=== PATIENT | female | born 1945 | race Caucasian/White ===

== ENCOUNTER 2020-02-14 10:34 | Day surgery (SDC) | payer MEDICARE, SELFPAY ==
[2020-02-14] VITALS (9 sets, daily range): BP systolic 130–163; BP diastolic 54–74; PULSE 59–82; RESP 10–19; TEMP 36.2–36.8; O2SAT 93–100; BMI 31.6
--- NOTE | 2020-02-14 | DI.RAD.S_ITS ---
PROCEDURE: XR LUMBAR SPINE 2-3V INDICATIONS: L2 KYPHO TECHNIQUE: 2 views of the lumbar spine were acquired. COMPARISON: [facility], CR, XR LUMBAR SPINE 2 OR 3 VIEWS, 02/06/2020, 19:54. FINDINGS: 2 fluoroscopy views of the lumbar spine demonstrate L2 kyphoplasty. IMPRESSION: L2 kyphoplasty. Dictated by: Cedrick Lopez M.D. on 02/14/2020 at 14:58 Approved by: Cedrick Lopez M.D. on 02/14/2020 at 15:01
--- NOTE | 2020-02-14 | PATH_ITS ---
[facility] Accession Number: [id number] . 01 Material submitted: . back - L2 BIOPSY . 02 Diagnosis: Bone, L2, Biopsy: Fragments of woven and lamellar bone. Bone marrow with trilineage hematopoiesis. No evidence of neoplasm. [facility] 02/15/2020 1323 Local . 02 Electronically signed: . Meseret Mcdonald MD, Pathologist NPI- [id number] . 01 Gross description: . Received one formalin-filled container, labeled with the patient's name and labeled L2 biopsy. The specimen consists of a 0.3 x 0.3 x 0.3 cm portion of bone. The specimen is entirely submitted in one cassette and will be placed in decal for softening. ([id number]) /[facility] 02/15/2020 0217 Local . 02 Pathologist provided ICD-10: S32.020A . 02 CPT . 210204 Performed at: 01 [facility] [address] [facility] [place], [place], [place] [id number] MD Josiah Child MD Phone: [phone] Performed at: 02 [facility] [address] [place], [place] [id number] MD Meseret Mcdonald MD Phone: [phone]
--- NOTE | 2020-02-14 11:56 | PM.PREOP ---
Pre-operative Note Interval Note History & Physical reviewed/Exam performed by Physician: Yes Changes to H&P: No
--- NOTE | 2020-02-14 12:05 | SUR.OPER ---
Prone on spine table, head in foam head support, padded chest and pelvic supports, gel pad at knees, lower legs supported by pillows; nipples, genitalia and toes free of pressure, arms secured on foam padded arm boards at <90 degrees abduction. Tape over blanket at thigh secured to table.
[2020-02-14] MEDS: LACTATED RINGERS 1,000 ML 42 ML IV (12:09)
--- NOTE | 2020-02-14 12:10 | SUR.PREOP ---
EKG and labs drawn per order.
[2020-02-14 12:22] LABS: Add Manual Diff / Slide Review NO; Basophils Absolute Auto 0 /uL (0-100); Basophils Percent Auto 0.6 % (0-2); Eosinophils Absolute Auto 100 /uL (0-450); Eosinophils Percent Auto 1.8 % (2-4); Hematocrit 40.9 % (36-46); Hemoglobin 13.7 g/dL (12.0-16.0); Lymphocytes Absolute Auto 800 /uL (1100-4500); Lymphocytes Percent Auto 13.2 % (25-40); Mean Corpuscular HGB Conc 33.4 % (30-36); Mean Corpuscular Hemoglobin 30.1 PG (26-34); Mean Corpuscular Volume 90.2 fL (80-100); Monocytes Absolute Auto 700 /uL (0-900); Neutrophils Absolute Auto 4400 /uL (1500-7000); Neutrophils Percent Auto 72.4 % (50-75); Platelet Count 132 X10^3/uL (150-400); Red Blood Cell Count 4.54 X10^6/uL (4.0-5.2); Red Cell Distribution Width 13.6 % (11.6-14.8); White Blood Cell Count 6.1 X10^3/uL (4.5-11.0)
[2020-02-14 12:33] LABS: BUN Creatinine Ratio 27.1 (6-22); Blood Urea Nitrogen 16 mg/dL (7-17); Calcium 10.1 mg/dL (8.4-10.2); Carbon Dioxide 25 mmol/L (22-32); Chloride 105 mmol/L (98-107); Estimated Glomerular Filt Rate > 60.0 mL/min (>60); Glucose 122 mg/dL (80-110); HEMOLYSIS < 15 (0-50); Potassium 3.9 mmol/L (3.4-5.1); Sodium 138 mmol/L (137-145)
[2020-02-14] MEDS: CLINDAMYCIN 900 MG/50 ML PIGGYBACK 50 MG IV (12:44)
[2020-02-14] MEDS: BUPIVACAINE 0.25% W/ EPI 30 ML VIAL INJ (13:10)
--- NOTE | 2020-02-14 13:26 | PM.OP.1 ---
Operative Date/Time/Diagnoses Date of procedure: 02/14/20 Time of procedure: 13:26 Pre-op diagnosis: L2 compression fracture Back pain Post-op diagnosis: same Procedure & Clinicians Procedure: L2 kyphoplasty Same procedure as scheduled: Yes Indications: [age] year old female with intractable pain from an acute L2 compression fracture. They had failed conservative management and requested operative intervention. Risks and benefits of surgery were discussed and appropriate consents were obtained. Surgeon: Eric Mishra Click Yes if Unassisted: Yes Anesthesia Type: General Operative Notes Findings: None Closure Type: primary Specimen(s): other (L2 vertebral biopsy) Estimated Blood Loss (mL): 5 Procedure in detail: The patient was brought to the operating room and intubated on the table. They were then rolled over to the well-padded prone position. Time-out was performed. We confirmed positioning with two fluoroscopy views. The back was prepped and draped in the standard sterile fashion. Preoperative antibiotics were given. Using fluoroscopic guidance, the planned incision site was infiltrated with Marcaine with epinephrine and injected down to the entry site of the left pedicle of L2. A small stab incision was made and we advanced a Jamshiedi needle down the left pedicle into the vertebral body. A bone biopsy was harvested from this and sent to pathology. We then passed the DFine osteotome and opened it up to create a void inside the vertebral body. We then began injecting the cement. This was done with frequent fluoroscopy imaging. The cement was filling the bone nicely on the left side but not going to the right. I then used Marcaine for local anesthetic and then a stab incision and then placed a Jamshidi needle down the right pedicle of L2. We again passed the osteotome to open up the void and then injected cement. At this point we kept going until we had good fill of the vertebral body. The injection was stopped and the trocars were removed. Final x-rays were taken. The wound was cleaned. Steri-Strips and sterile dressing were placed. Patient was rolled over, extubated, and brought to recovery without complications. Complications: none Post-operative Condition: stable Disposition: PACU Plan for aftercare: Outpatient. Activity as tolerated.
[2020-02-14] MEDS: ACETAMINOPHEN 325 MG TABLET 650 MG PO (14:49)
--- NOTE | 2020-02-14 15:16 | SUR.PHASEII ---
Pt medicated with tramadol and tylenol. Given snack of applesauce and crackers, called at 1420 and message left, no return called, called again at 1450 stated he could not be here any sooner than 1540. Pt ready to go dressing c/d/i. Neuro checks wnl.
== END 2020-02-14 15:25 | disposition home or self-care (01) ==
PROVIDERS: Referring Provider Orthopaedic Surgery; Visit Provider Orthopaedic Surgery
PROC: (CPT 22514; principal; 2020-02-14 12:15)
DX: M80.08XA Age-related osteoporosis with current pathological fracture, vertebra(e), initial encounter for fracture (principal); M54.9 Dorsalgia, unspecified; W18.30XA Fall on same level, unspecified, initial encounter; Y93.89 Activity, other specified; Y92.096 Garden or yard of other non-institutional residence as the place of occurrence of the external cause; I10 Essential (primary) hypertension; E11.9 Type 2 diabetes mellitus without complications; F32.9 Major depressive disorder, single episode, unspecified; Z79.84 Long term (current) use of oral hypoglycemic drugs
CPT/HCPCS: 22514; 36415; 72100; 76000; 80048; 85025; 93005; C1776; J0330; J2704; J3010